=== PATIENT | male | born 1960 | race Hispanic/Latino ===

== ENCOUNTER 2019-02-24 20:30 | Inpatient (IN) | payer MEDICARE ==
[~2019-02-24] VITALS: Ht 154.9 cm; Wt 86.2 kg
[2019-02-24 21:30] LABS: BASOPHILS # (AUTO) 0.1 (0.0-0.1); BASOPHILS % 0.7 % (0.0-1.0); EOSINOPHILS # (AUTO) 0.3 (0.0-0.4); EOSINOPHILS % 3.7 % (0.0-6.0); HEMATOCRIT 31.5 % (38.2-49.6); HEMOGLOBIN 10.7 g/dL (14.0-18.0); MEAN CORPUSCULAR HEMOGLOBIN 28.8 pg (28-32); MEAN CORPUSCULAR VOLUME 84.9 fL (81-99); MONOCYTES # (AUTO) 0.6 (0.2-0.8); MONOCYTES % 7.5 % (4.4-11.3); NEUTROPHILS # (AUTO) 5.3 (2.1-6.9); NEUTROPHILS % 63.6 % (38.7-80.0); PLATELET COUNT 292 x10e3/uL (140-360); RED BLOOD COUNT 3.71 x10e6/uL (4.3-5.7); RED CELL DISTRIBUTION WIDTH 15.9 % (11.7-14.4)
[2019-02-24 21:34] LABS: BILIRUBIN,URINE NEGATIVE (NEGATIVE); CLARITY,URINE CLEAR (CLEAR); COLOR,URINE YELLOW (YELLOW); KETONES,URINE NEGATIVE (NEGATIVE); LEUKOCYTE ESTERASE ,URINE NEGATIVE (NEGATIVE); NITRITE,URINE NEGATIVE (NEGATIVE); PROTEIN,URINE DIPSTICK 2+ (NEGATIVE); URINE UROBILINOGEN 0.2 mg/dL (0.2 - 1)
[2019-02-24 21:48] LABS: ALBUMIN 3.9 g/dL (3.5-5.0); ALBUMIN/GLOBULIN RATIO 1.1 (0.8-2.0); ANION GAP 15.8 mmol/L (8-16); CALCIUM 9.5 mg/dL (8.4-10.2); CREATININE, SERUM 1.89 mg/dL (0.72-1.25); POTASSIUM 3.8 mmol/L (3.5-5.1)
[2019-02-24 21:51] LABS: BACTERIA,URINE FEW /HPF; EPITHELIAL CELLS,URINE MODERATE /LPF; MUCUS,URINE FEW (RARE); RBC,URINE 0-5 /HPF (0-5)
[2019-02-24 21:55] LABS: CREATINE KINASE MB 6.7 ng/mL (0-5.0)
--- NOTE | 2019-02-24 22:06 | Diagnostic Imaging Report ---
EXAMINATION: CHEST SINGLE (PORTABLE) COMPARISON: None INDICATION: Weakness ^sob ^[id number] ^2140 ^Y DISCUSSION: Frontal view of the chest obtained at 2140 hours. HEART AND MEDIASTINUM: The heart is top normal in size, possibly due to portable technique LINES: None. LUNGS: The lungs are well inflated and clear. No pneumonia or pulmonary edema. PLEURA: No pleural effusion or pneumothorax. BONES AND SOFT TISSUES: No focal osseous lesion. The soft tissues are normal. IMPRESSION: No acute cardiopulmonary disease. Signed by: Dr. Alivia Ramon MD on 02/24/2019 10:03 PM
--- NOTE | 2019-02-24 22:46 | Diagnostic Imaging Report ---
History:Weakness Comparison studies:None Technique: Axial images were obtained from the skull base to the vertex. Coronal and sagittal images reconstructed from the axial data. Intravenous contrast: None Dose modulation, iterative reconstruction, and/or weight based adjustment of the mA/kV was utilized to reduce the radiation dose to as low as reasonably achievable. Findings: Scalp/skull: No abnormalities. Extra-axial spaces: No masses. No fluid collections. Brain sulci: Mildly prominent. Ventricles: Mild compensatory dilatation. No hydrocephalus. Parenchyma: Cortical-based hypodensity at the left posterior occipital lobe (cuneus) and left inferior parietal lobule without significant volume loss. Few hypodensities in the supratentorial white matter are small vessel ischemic changes. No masses, hemorrhage, acute or chronic cortical vascular insults. Sellar/suprasellar region: No abnormalities. Craniocervical junction: Patent foramen magnum. No Chiari one malformation. Incidental findings: Atherosclerotic calcifications in the carotid siphons and vertebral arteries . Impression: Age indeterminant infarct at the left posterior occipital lobe (cuneus) and left inferior parietal lobule, favored to be chronic. Chronic findings: 1. Mild generalized volume loss. 2. Mild supratentorial white matter small vessel ischemic changes. Signed by: DR Thomas Aiken M.D. on 02/24/2019 10:43 PM
--- NOTE | 2019-02-24 23:15 | NUR ---
REPORT GIVEN TO AN LOW
--- NOTE | 2019-02-24 23:16 | NUR ---
RECEIVED REPORT FROM AN VINCENT.
--- NOTE | 2019-02-24 23:30 | NUR ---
Patient received from ER via stretcher accompanied by family members. AAO x 3. Admission history and Initial physical assessment performed. Patient had no complaints of pain. Respirations even and non-labored . Telemetry in place. Patient oriented to room , call light and plan of care. Fall precautions implemented. Patient instructed to call for assistance when needed. Call light within reach.
--- OUTSIDE RECORDS SUMMARY | 2019-02-24 23:43 | XMS REPORT ---
Author [facility] Address Unknown Phone Unavailable Care Team Providers Care Physical Science Aide Name Role Phone Philomena FONSECA Unavailable Unavailable Problems This patient has no known problems. Allergies, Adverse Reactions, Alerts This patient has no known allergies or adverse reactions. Medications This patient has no known medications. Results Test Description Test Time Test Comments Text Results Atomic Results Result Comments CT BRAIN WO 2019-02-24 22:24:00 [facility] [address] [address] Patient Name: VANITA HOLDER MR #: [id number] : 1960 Age/Sex: 58/M Req #: [id number] Adm Physician: Ordered by: EVETTE FONSECA MD Report #: [id number] Location: ER Room/Bed: Procedure: [id number] CT/CT BRAIN WO Exam Date: 02/24/19 Exam Time: 2139 REPORT STATUS: Signed History:Weakness Comparison studies:None Technique: Axial images were obtained from the skull base to the vertex. Coronal and sagittal images reconstructed from the axial data. Intravenous contrast: None Dose modulation, iterative reconstruction, and/or weight based adjustment of the mA/kV was utilized to reduce the radiation dose to as low as reasonably achievable. Findings: Scalp/skull: No abnormalities. Extra- axial spaces: No masses. No fluid collections. Brain sulci: Mildly prominent. Ventricles: Mild compensatory dilatation. No hydrocephalus. Parenchyma: Cortical-based hypodensity at the left posterior occipital lobe (cuneus) and left inferior parietal lobule without significant volume loss. Few hypodensities in the supratentorial white matter are small vessel ischemic changes. No masses, hemorrhage, acute or chronic cortical vascular insults. Sellar/suprasellar region: No abnormalities. Craniocervical junction: Patent foramen magnum. No Chiari one malformation. Incidental findings: Atherosclerotic calcifications in the carotid siphons and vertebral arteries . Impression: Age indeterminant infarct at the left posterior occipital lobe (cuneus) and left inferior parietal lobule, favored to be chronic. Chronic findings: 1. Mild generalized volume loss. 2. Mild supratentorial white matter small vessel ischemic changes. Signed by: DR Thomas Aiken M.D. on 02/24/2019 10:43 PM Dictated By: THOMAS GILL MD 42 Transcribed By: JOSEPH on 02/24/192242 COPY TO: EVETTE FONSECA MD CHEST SINGLE (PORTABLE) 2019-02-24 22:03:00 [address] [address] Patient Name: VANITA HOLDER MR #: [id number] : 1960 Age/Sex: 58/M Req #: [id number] Adm Physician: Ordered by: EVETTE FONSECA MD Report #: [id number] Location: ER Room/Bed: Procedure: [id number] DX/CHEST SINGLE (PORTABLE) Exam Date: 02/24/19 Exam Time: 2139 REPORT STATUS: Signed EXAMINATION: CHEST SINGLE (PORTABLE) COMPARISON: None INDICATION: Weakness sob [id number] 2140 Y DISCUSSION: Frontal view of the chest obtained at 2140 hours. HEART AND MEDIASTINUM: The heart is top normal in size, possibly due to portable technique LINES: None. LUNGS: The lungs are well inflated and clear. No pneumonia or pulmonary edema. PLEURA: No pleural effusion or pneumothorax. BONES AND SOFT TISSUES: No focal osseous lesion. The soft tissues are normal. IMPRESSION: No acute cardiopulmonary disease. Signed by: Dr. April Ramon MD on 02/24/2019 10:03 PM Dictated By: APRIL RAMON MD 02 Transcribed By: JOSEPH on 02/24/192202 COPY TO: EVETTE FONSECA MD
[2019-02-24] MEDS ORDERED: SODIUM CHLORIDE FLUSH 10 ML SYR INJ PRN (23:45)
[2019-02-24] MEDS ORDERED: DEXTROSE 50% SYRINGE 50 ML IV PRN (23:45)
[2019-02-24] MEDS ORDERED: ONDANSETRON HCL INJ 2MG/ML 2ML 2 MG/ML VIAL IV PRN (23:45)
[2019-02-25] VITALS (7 sets, daily range): BP systolic 137–172; BP diastolic 63–81
[2019-02-25] MEDS ORDERED: SUCRALFATE1 GM PO (05:10)
[2019-02-25] MEDS ORDERED: LEVOTHYROXINE50 MCG PO (05:10)
[2019-02-25] MEDS ORDERED: GLIPIZIDE5 MG PO (05:10)
[2019-02-25] MEDS ORDERED: CLOPIDOGREL75 MG PO (05:10)
[2019-02-25] MEDS ORDERED: CARVEDILOL12.5 MG PO (05:10)
[2019-02-25] MEDS ORDERED: AMLODIPINE BESY10 MG PO (05:10)
[2019-02-25] MEDS ORDERED: ATORVASTATIN CA20 MG PO (05:10)
[2019-02-25] MEDS ORDERED: FUROSEMIDE40 MG PO (05:10)
[2019-02-25] MEDS ORDERED: LISINOPRIL5 MG PO (05:10)
[2019-02-25] MEDS ORDERED: ISOSORBIDE MONO30 MG PO (05:10)
[2019-02-25] MEDS ORDERED: POTASSIUM CHLO20 ME1 (05:10)
[2019-02-25] MEDS ORDERED: METFORMIN HCL500 MG PO (05:10)
[2019-02-25] MEDS ORDERED: PROTONIX40 MG/ML PO (05:10)
[2019-02-25 05:22] LABS: BASOPHILS # (AUTO) 0.1 (0.0-0.1); BASOPHILS % 0.6 % (0.0-1.0); EOSINOPHILS # (AUTO) 0.3 (0.0-0.4); EOSINOPHILS % 3.9 % (0.0-6.0); HEMATOCRIT 28.2 % (38.2-49.6); HEMOGLOBIN 9.8 g/dL (14.0-18.0); LYMPHOCYTES # (AUTO) 1.9 (1.0-3.2); LYMPHOCYTES % 24.8 % (18.0-39.1); MEAN CORPUSCULAR HEMOGLOBIN 29.2 pg (28-32); MEAN CORPUSCULAR HGB CONC 34.8 g/dL (31-35); MEAN CORPUSCULAR VOLUME 83.9 fL (81-99); MONOCYTES # (AUTO) 0.5 (0.2-0.8); NEUTROPHILS # (AUTO) 4.9 (2.1-6.9); NEUTROPHILS % 63.3 % (38.7-80.0); PLATELET COUNT 247 x10e3/uL (140-360); RED BLOOD COUNT 3.36 x10e6/uL (4.3-5.7); RED CELL DISTRIBUTION WIDTH 15.9 % (11.7-14.4)
[2019-02-25 05:39] LABS: ALBUMIN 3.2 g/dL (3.5-5.0); ALBUMIN/GLOBULIN RATIO 1.1 (0.8-2.0); ANION GAP 12.6 mmol/L (8-16); CALCIUM 8.7 mg/dL (8.4-10.2); CREATININE, SERUM 1.7 mg/dL (0.72-1.25); POTASSIUM 3.6 mmol/L (3.5-5.1)
--- NOTE | 2019-02-25 06:41 | NUR ---
Patient's BP elevated (170/72) with HR of 61. Dr. Steve Thompson notified. New order received.
[2019-02-25 06:47] LABS: CREATINE KINASE MB 3.6 ng/mL (0-5.0)
--- NOTE | 2019-02-25 07:12 | NUR ---
Walking rounds done. Shift report given to oncoming nurse regarding patient's status.
[2019-02-25] MEDS: INSULIN REGULAR, HUMAN 100 UNIT/1 ML 3ML VIAL SQ SCH ×4 (07:30→20:31)
[2019-02-25] MEDS: CARVEDILOL 12.5 MG TAB PO SCH ×2 (07:41→16:33)
[2019-02-25] MEDS: NIFEDIPINE 10 MG CAP PO SCH ×2 (10:56→20:22)
--- NOTE | 2019-02-25 12:13 | Diagnostic Imaging Report ---
History: Weakness Comparison studies: Head CT on 02/24/2019, brain MRI on 02/25/2019 Technique: 2-D abxo-il-seeqbz cervical. 3-D zgia-wk-yrczcn intracranial. Contrast: None Findings: Aortic arch: Obscured by artifacts. Common carotid arteries: Cannot adequately evaluate due to motion artifacts. Carotid bulbs: Evaluation is suboptimal due to motion artifacts. No gross large vessel occlusion. Internal carotid arteries: No flow abnormalities in the cervical segments. Grossly patent anterior and middle cerebral arteries. Vertebral arteries: Origins obscured by artifacts. Evaluation is suboptimal due to motion artifact. No gross large vessel occlusion. Basilar artery: No flow abnormalities. Posterior cerebral arteries: No flow abnormalities in the P1 and P2 segments. Anatomical variants: Acom: Not visualized. Pcom: Prominent on the right due to origin of the right AVIONICS ENGINEER Vertebral arteries: Co-dominant. IMPRESSION: Cervical MRA: 1. Suboptimal study due to motion artifacts. 2. Cannot adequately visualize the origins of the common carotid or the vertebral arteries. 3. No gross major vessel occlusions at the carotid bulbs and in the cervical segments of the internal and vertebral arteries in spite of the artifacts. Intracranial MRA: No gross abnormalities in spite of motion artifacts. Signed by: Dr. Clive Perez M.D. on 02/25/2019 12:10 PM
--- NOTE | 2019-02-25 12:13 | Diagnostic Imaging Report ---
History: Weakness Comparison studies: Head CT on 02/24/2019, brain MRI on 02/25/2019 Technique: 2-D iodc-kq-adrtfd cervical. 3-D dqoi-ji-wnjknu intracranial. Contrast: None Findings: Aortic arch: Obscured by artifacts. Common carotid arteries: Cannot adequately evaluate due to motion artifacts. Carotid bulbs: Evaluation is suboptimal due to motion artifacts. No gross large vessel occlusion. Internal carotid arteries: No flow abnormalities in the cervical segments. Grossly patent anterior and middle cerebral arteries. Vertebral arteries: Origins obscured by artifacts. Evaluation is suboptimal due to motion artifact. No gross large vessel occlusion. Basilar artery: No flow abnormalities. Posterior cerebral arteries: No flow abnormalities in the P1 and P2 segments. Anatomical variants: Acom: Not visualized. Pcom: Prominent on the right due to origin of the right RADIO OPERATOR GROUND Vertebral arteries: Co-dominant. IMPRESSION: Cervical MRA: 1. Suboptimal study due to motion artifacts. 2. Cannot adequately visualize the origins of the common carotid or the vertebral arteries. 3. No gross major vessel occlusions at the carotid bulbs and in the cervical segments of the internal and vertebral arteries in spite of the artifacts. Intracranial MRA: No gross abnormalities in spite of motion artifacts. Signed by: Dr. Clive Perez M.D. on 02/25/2019 12:10 PM
--- NOTE | 2019-02-25 12:14 | Diagnostic Imaging Report ---
History: Weakness Comparison studies: Head CT on 02/24/2019 Technique: Sagittal T2; axial DWI, FLAIR, MPGR, T1, Coronal FLAIR. Intravenous contrast: None Findings: Scalp: Normal in signal . No masses . Bone marrow: Normal in signal intensity. Extra-axial: No masses or fluid collections. Brain sulci: Moderately prominent. Ventricles: Moderate compensatory dilatation. No hydrocephalus. Parenchyma: Subcortical encephalomalacic changes in the left medial occipital white matter (above and below the calcarine fissure), the result of an old nonspecific insult, are associated with regional volume loss. Additional focal subacute or chronic vascular insults are seen in the left middle and inferior temporal gyri, the angular region of the left parietal lobe and in the inferomedial parietal lobe (pre-cuneus). Ill defined T2 FLAIR hyperintense foci in the konrad are nonspecific small vessel ischemic changes. A single punctate chronic microhemorrhage (hypointense on the gradient echo sequence) is centered in the inferomedial right occipital lobe (series 6, image 9) . No masses, hemorrhage, acute or additional chronic cortical ischemic insults. Suprasellar region: No abnormalities. Craniocervical junction: No abnormalities. Patent foramen magnum. No Chiari one malformation. Vessels: Normal flow-voids in the arteries and sinuses. IMPRESSION: 1. No acute abnormalities. 2. Specifically, no acute vascular insults. Chronic findings: 1. Moderate generalized volume loss 2. Cortical insult in the left medial occipital lobe unchanged compared to the previous head CT. 3. Additional subacute/early chronic focal, smaller cortical insults (left temporal and left parietal). 4. Single punctate chronic microhemorrhage in the right inferomedial occipital lobe. Signed by: Dr. Clive Perez M.D. on 02/25/2019 12:10 PM
--- NOTE | 2019-02-25 13:42 | NUR ---
H&P cc: weakness HPI: 58yoF, PCP , developed weakness, found to have subacute stroke. No acute findings; no cp/sob. Pt had diarrhea and vomiting for 2 days, but now better. Came to hospital because had difficulty moving, no focal weakness. [place] tired and weak. PMH: Hypothyroidism, DM2, HTN, HLD, GERD, fluid retention on lasix, stroke, [place] PShx: unknown Allergies; see emr Fh/SH;single; no etoh/cigs/illiicts MEds see MAR ROS: no cp/sob/f/c/s/N/V/D/skin rash/dizziness/leg pain v/s; REVD PE tired appearing anicteric ns1s2 mod bs soft nt nd no e/t a&ox3; rojas skin dry n. affect labs/meds revd A/P: 58yoM SUbacute stroke Chronic strokes Acute rhabdomyolysis AJ Severe obesity BMI 35.9 with DM HLD HTN GERD Hypothyroidism DM2 Physical deconditioning PLAN lipid panel/hba1c/ASA/plavix/statin/PT consult; echo home meds lovenox/ppi dispo: medical tx Anatoly Thompson MD, PhD.
[2019-02-25 16:16] LABS: CREATINE KINASE MB 3.2 ng/mL (0-5.0)
[2019-02-25 16:29] LABS: CHOL/HDL RATIO 3.9 (3.9-4.7)
[2019-02-25] MEDS: ENOXAPARIN SOD INJ 40 MG/0.4 ML SYR SC SCH (16:33)
[2019-02-25] MEDS: SUCRALFATE 1 GM TAB PO SCH ×2 (16:33→20:22)
[2019-02-25] MEDS: SODIUM CHLORIDE 0.9% 1000ML 1,000 ML IV SCH (17:51)
--- NOTE | 2019-02-25 18:45 | NUR ---
Received bedside report from day shift RN. The patient is sitting on the chair next to the bed. Side rails up x2, call light within reach, bed height low and wheels lock. The patient is not in distress.
[2019-02-25] MEDS: ATORVASTATIN 40 MG TAB PO SCH (20:22)
[2019-02-26] VITALS (8 sets, daily range): BP systolic 123–161; BP diastolic 56–83
[2019-02-26] MEDS: LEVOTHYROXINE SODIUM 50 MCG TAB PO SCH (05:18)
[2019-02-26] MEDS: CARVEDILOL 12.5 MG TAB PO SCH ×2 (06:17→16:33)
--- NOTE | 2019-02-26 07:16 | NUR ---
PT ALERT SITTING ON SIDE OF BED RESP EVEN AND UNLABORED AT THIS TIME NO DISTRESS NOTED, PT HAS NO C/O PAIN WHEN ASKED, CALL LIGHT IN REACH.
[2019-02-26] MEDS: INSULIN REGULAR, HUMAN 100 UNIT/1 ML 3ML VIAL SQ SCH ×4 (07:30→21:29)
[2019-02-26] MEDS ORDERED: AMLODIPINE BESYLATE 10 MG TAB PO SCH (09:00)
[2019-02-26] MEDS: POTASSIUM CHLORIDE 20 MEQ TAB CR PO SCH (09:13)
[2019-02-26] MEDS: CLOPIDOGREL BISULFATE 75 MG TAB PO SCH (09:13)
[2019-02-26] MEDS: ASPIRIN 81 MG CHEW TAB PO SCH (09:13)
[2019-02-26] MEDS: LISINOPRIL 2.5 MG TAB PO SCH (09:13)
[2019-02-26] MEDS: SUCRALFATE 1 GM TAB PO SCH ×4 (09:13→21:30)
[2019-02-26] MEDS: PANTOPRAZOLE SOD 40 MG TABEC PO SCH (09:14)
[2019-02-26] MEDS: ISOSORBIDE MONONITRATE 30 MG TAB CR PO SCH (09:14)
[2019-02-26] MEDS: NIFEDIPINE 10 MG CAP PO SCH ×2 (09:15→21:30)
[2019-02-26] MEDS ORDERED: ONDANSETRON HCL 4 MG ORAL DISINTEGRATING TAB PO PRN (11:15)
[2019-02-26 11:49] LABS: BASOPHILS # (AUTO) 0.1 (0.0-0.1); BASOPHILS % 0.7 % (0.0-1.0); EOSINOPHILS # (AUTO) 0.2 (0.0-0.4); EOSINOPHILS % 3.4 % (0.0-6.0); HEMATOCRIT 26.7 % (38.2-49.6); HEMOGLOBIN 9.1 g/dL (14.0-18.0); LYMPHOCYTES # (AUTO) 1.4 (1.0-3.2); LYMPHOCYTES % 21.1 % (18.0-39.1); MEAN CORPUSCULAR HEMOGLOBIN 28.9 pg (28-32); MEAN CORPUSCULAR HGB CONC 34.1 g/dL (31-35); MEAN CORPUSCULAR VOLUME 84.8 fL (81-99); MONOCYTES # (AUTO) 0.6 (0.2-0.8); MONOCYTES % 8.2 % (4.4-11.3); NEUTROPHILS # (AUTO) 4.4 (2.1-6.9); NEUTROPHILS % 66.2 % (38.7-80.0); PLATELET COUNT 220 x10e3/uL (140-360); RED BLOOD COUNT 3.15 x10e6/uL (4.3-5.7); RED CELL DISTRIBUTION WIDTH 15.4 % (11.7-14.4)
[2019-02-26 12:10] LABS: ANION GAP 12.4 mmol/L (8-16); CALCIUM 8.2 mg/dL (8.4-10.2); CREATININE, SERUM 1.87 mg/dL (0.72-1.25); POTASSIUM 4.4 mmol/L (3.5-5.1)
[2019-02-26] MEDS: SODIUM CHLORIDE 0.9% 1000ML 1,000 ML IV SCH (12:34)
--- NOTE | 2019-02-26 14:30 | NUR ---
PT AMBULATING IN [place] AT THIS TIME.
[2019-02-26] MEDS: ENOXAPARIN SOD INJ 40 MG/0.4 ML SYR SC SCH (16:33)
--- NOTE | 2019-02-26 18:45 | NUR ---
Received bedside report from day shift RN. The patient is sitting on the chair next to the bed. Side rails up x2, call light within reach, bed height low and wheels lock. The patient is not in distress. Daughter at bedside. Daughter asked about her father's dehydration status. Educated patient/daughter on hydration as well as fluid overload. The patient should take daily weight first thing in the morning before breakfast and any fluid and monitor/record fluid intake throughout the day to be consistent with weight. Verbalized understanding.
--- NOTE | 2019-02-26 19:30 | NUR ---
REPORT GIVEN TO ON COMING NURSE FOR CONTINUED CARE. PT STABLE.
[2019-02-26] MEDS: ATORVASTATIN 40 MG TAB PO SCH (21:30)
[2019-02-27] VITALS (8 sets, daily range): BP systolic 111–155; BP diastolic 64–81
[2019-02-27] MEDS: LEVOTHYROXINE SODIUM 50 MCG TAB PO SCH (05:01)
[2019-02-27] MEDS: CARVEDILOL 12.5 MG TAB PO SCH ×2 (05:50→17:45)
--- NOTE | 2019-02-27 07:36 | NUR ---
IM- progress Note O/N no events ROS: no cp/sob/f/c/s/N/V/D/skin rash/dizziness/leg pain v/s; REVD PE tired appearing anicteric ns1s2 mod bs soft nt nd no e/t a&ox3; rojas skin dry n. affect labs/meds revd A/P: 58yoM SUbacute stroke Chronic strokes Acute rhabdomyolysis AJ Severe obesity BMI 35.9 with DM HLD HTN GERD Hypothyroidism DM2 Physical deconditioning PLAN lipid panel/hba1c/ASA/plavix/statin/PT consult; echo home meds lovenox/ppi dispo: medical tx 02/26/19 no events; feeling a little better; Anatoly Thompson MD, PhD.
--- NOTE | 2019-02-27 07:36 | NUR ---
IM- progress Note O/N no events ROS: no cp/sob/f/c/s/N/V/D/skin rash/dizziness/leg pain v/s; REVD PE tired appearing anicteric ns1s2 mod bs soft nt nd no e/t a&ox3; rojas skin dry n. affect labs/meds revd A/P: 58yoM SUbacute stroke Chronic strokes Acute rhabdomyolysis AJ Severe obesity BMI 35.9 with DM HLD HTN GERD Hypothyroidism DM2 Physical deconditioning PLAN lipid panel/hba1c/ASA/plavix/statin/PT consult; echo home meds lovenox/ppi dispo: medical tx 02/26/19 no events; feeling a little better; 02/27 check renal U/S; rehydrate; d/c planning; Renal U/s normal; give more fluids; check BMP in am. Anatoly Thompson MD, PhD.
[2019-02-27] MEDS ORDERED: NIFEDIPINE ER30 M1 PO (07:39)
--- NOTE | 2019-02-27 07:54 | NUR ---
called MD for blood sugar results of 423. Per MD give sliding scale 20 units and new prescriptions of glucotrol and glucophage.
[2019-02-27] MEDS: LISINOPRIL 2.5 MG TAB PO SCH (08:30)
[2019-02-27] MEDS: NIFEDIPINE 10 MG CAP PO SCH ×2 (08:30→20:32)
[2019-02-27] MEDS: GLIPIZIDE 5 MG TAB PO SCH (08:30)
[2019-02-27] MEDS: CLOPIDOGREL BISULFATE 75 MG TAB PO SCH (08:30)
[2019-02-27] MEDS: ISOSORBIDE MONONITRATE 30 MG TAB CR PO SCH (08:30)
[2019-02-27] MEDS: METFORMIN HCL 500 MG TAB PO SCH ×4 (08:30→20:32)
[2019-02-27] MEDS: PANTOPRAZOLE SOD 40 MG TABEC PO SCH (08:30)
[2019-02-27] MEDS: ASPIRIN 81 MG CHEW TAB PO SCH (08:30)
[2019-02-27] MEDS: INSULIN REGULAR, HUMAN 100 UNIT/1 ML 3ML VIAL SQ SCH (08:30)
[2019-02-27] MEDS: POTASSIUM CHLORIDE 20 MEQ TAB CR PO SCH (08:30)
[2019-02-27] MEDS: SUCRALFATE 1 GM TAB PO SCH ×4 (08:30→20:32)
--- NOTE | 2019-02-27 11:09 | Diagnostic Imaging Report ---
EXAM: Renal Ultrasound INDICATION: ^adam vs ckd ^[id number] ^0905 COMPARISON: None TECHNIQUE: Transverse and longitudinal images of the kidneys and bladder were obtained. FINDINGS: Right Kidney: Length: 11.1 cm Appearance: Normal echogenicity. Collecting system: No hydronephrosis Stones: None Cyst/Mass: None Left Kidney: Length: 11.1 cm Appearance: Normal echogenicity. Collecting system: No hydronephrosis Stones: None Cyst/Mass: None Bladder: No wall thickening or mass. Left ureteral jet seen. Right ureteral jet not seen. Prostate: Within normal limits, estimated volume 12.3 cc IMPRESSION: No hydronephrosis or renal calculi. Signed by: Bella Olivera MD on 02/27/2019 11:06 AM
[2019-02-27] MEDS: SODIUM CHLORIDE 0.9% 1000ML 1,000 ML IV SCH (13:05)
[2019-02-27] MEDS: ACETAMINOPHEN 325 MG TAB PO PRN (17:45)
[2019-02-27] MEDS: ENOXAPARIN SOD INJ 40 MG/0.4 ML SYR SC SCH (17:45)
[2019-02-27] MEDS: INSULIN LISPRO 100 UNIT/1 ML 3ML VIAL SQ SCH (17:45)
[2019-02-27] MEDS: ATORVASTATIN 40 MG TAB PO SCH (20:32)
[2019-02-27] MEDS: INSULIN GLARGINE 100 UNITS/ML VIAL SQ SCH (20:33)
[2019-02-28] VITALS (8 sets, daily range): BP systolic 118–153; BP diastolic 64–76
[2019-02-28] MEDS: SODIUM CHLORIDE 0.9% 1000ML 1,000 ML IV SCH ×3 (00:52→19:45)
[2019-02-28] MEDS: LEVOTHYROXINE SODIUM 50 MCG TAB PO SCH (05:10)
[2019-02-28 05:46] LABS: ANION GAP 12.4 mmol/L (8-16); CALCIUM 7.8 mg/dL (8.4-10.2); CREATININE, SERUM 1.88 mg/dL (0.72-1.25); POTASSIUM 4.4 mmol/L (3.5-5.1)
[2019-02-28] MEDS: CARVEDILOL 12.5 MG TAB PO SCH ×2 (06:08→18:39)
--- NOTE | 2019-02-28 06:35 | NUR ---
IM- progress Note O/N no events ROS: no cp/sob/f/c/s/N/V/D/skin rash/dizziness/leg pain v/s; REVD PE tired appearing anicteric ns1s2 mod bs soft nt nd no e/t a&ox3; rojas skin dry n. affect labs/meds revd A/P: 58yoM SUbacute stroke Chronic strokes Acute rhabdomyolysis AJ Severe obesity BMI 35.9 with DM HLD HTN GERD Hypothyroidism DM2 Physical deconditioning PLAN lipid panel/hba1c/ASA/plavix/statin/PT consult; echo home meds lovenox/ppi dispo: medical tx 02/26/19 no events; feeling a little better; 02/27 check renal U/S; rehydrate; d/c planning; Renal U/s normal; give more fluids; check BMP in am. 02/28 likely has CKD3. Anatoly Thompson MD, PhD.
[2019-02-28] MEDS: SUCRALFATE 1 GM TAB PO SCH ×4 (07:30→20:20)
[2019-02-28] MEDS: INSULIN LISPRO 100 UNIT/1 ML 3ML VIAL SQ SCH ×3 (07:30→16:30)
[2019-02-28] MEDS: PANTOPRAZOLE SOD 40 MG TABEC PO SCH (07:30)
[2019-02-28] MEDS: ASPIRIN 81 MG CHEW TAB PO SCH (07:30)
--- NOTE | 2019-02-28 07:30 | NUR ---
REC'D PATIENT SLEEPING WITH CHEST RISING UP AN DOWN EFFORTLESSLY AND UNLABORED. IV TO LT AC CLEAR AND PATENT. SIDE RAILS UPX2, BED IN LOWEST POSITION, AND CALL PAUL WITHIN REACH.
[2019-02-28] MEDS: CLOPIDOGREL BISULFATE 75 MG TAB PO SCH (09:00)
[2019-02-28] MEDS: METFORMIN HCL 500 MG TAB PO SCH ×4 (09:00→20:20)
[2019-02-28] MEDS: GLIPIZIDE 5 MG TAB PO SCH (09:00)
[2019-02-28] MEDS: POTASSIUM CHLORIDE 20 MEQ TAB CR PO SCH (09:00)
[2019-02-28] MEDS: NIFEDIPINE 10 MG CAP PO SCH ×2 (09:00→20:20)
[2019-02-28] MEDS: ISOSORBIDE MONONITRATE 30 MG TAB CR PO SCH (09:00)
[2019-02-28] MEDS: LISINOPRIL 2.5 MG TAB PO SCH (09:00)
[2019-02-28] MEDS ORDERED: SODIUM CHLORIDE 0.9% 1000ML 1,000 ML ONE ×2 (10:28→15:48)
--- NOTE | 2019-02-28 15:40 | NUR ---
Visit made by the Spiritual Care Department Pastoral Visitor, Joanna Flowers. PV provided pastoral presence, hospitality, and supportive listening. Pastoral Visitor informed pt/family of the scope of [employer] and availability. JUWAN LEAHY [employer] Set Up Worker Spiritual Care Department O: [phone] Pager: [phone] ([phone] number calling from)
--- NOTE | 2019-02-28 15:59 | NUR ---
DISCUSSED IN BARRIER ROUNDS, PT ON IV FLUIDS ON PO PAIN MEDS, POSSIBLE DISCHARGE TODAY.
[2019-02-28] MEDS: ENOXAPARIN SOD INJ 40 MG/0.4 ML SYR SC SCH (18:40)
--- NOTE | 2019-02-28 18:50 | NUR ---
PATIENT IS IN BED, NO S/S OF DISTRESS. SIDE RAILS UP X2, BED IN LOWEST POSITION, AND CALL LIGHT WITHIN REACH.
--- NOTE | 2019-02-28 19:47 | NUR ---
PATIENT STATED THAT HE WAS SHORT OF BREATH. O2 SAT WAS CHECKED AT 88%, OXYGEN AT 3L WAS GIVEN PER O2 PROTOCOL. PATIENT NOW RESTING IN BED, WILL CONTINUE TO MONITOR.
[2019-02-28] MEDS: ACETAMINOPHEN 325 MG TAB PO PRN (20:20)
[2019-02-28] MEDS: ATORVASTATIN 40 MG TAB PO SCH (20:20)
[2019-02-28] MEDS: INSULIN GLARGINE 100 UNITS/ML VIAL SQ SCH (20:20)
[2019-02-28] MEDS ORDERED: FUROSEMIDE INJ 10 MG/ML 4 ML VIAL IV ONE (22:15)
--- NOTE | 2019-02-28 22:39 | NUR ---
NEW ORDERS NOTED AND CARRIED OUT, MARTIN CATHETER 18FR PLACED, RETURN OF 400CC YELLOW COLORED URINE. PATIENT TOLERATED WELL. REMAIN ON NONREBREATHER 02 SATS AT 100%, WILL CONTINUE TO MONITOR.
--- NOTE | 2019-02-28 22:59 | NUR ---
PATIENT'S O2 SAT DROPPED TO 84%, OXYGEN INCREASED TO 10L. RESPIRATORY CALLED FOR O2 TREATMENT, AND FACE MASKED PLACED ON PATIENT. CALLED DR. ADAM FOR PATIENT'S PROGRESS, PATIENT WAS ORDERED LASIX AND FLUID'S DISCONTINUED. MARTIN PLACED BY CHARGE NURSE AND IS PATENT AND FLOWING. O2 SAT IS NOW AT 100% WILL CONTINUE TO MONITOR.
[2019-03-01] VITALS (8 sets, daily range): BP systolic 117–179; BP diastolic 57–89
--- NOTE | 2019-03-01 01:03 | NUR ---
PATIENT O2 SAT AT 96%. PATIENT IS RESTING WITH EYES CLOSED, NO RESPIRATORY DISTRESS NOTED. NASAL CANNULA INTACT, O2 SENSOR IS ON. BED IS LOCKED AND LOW, CALL LIGHT WITHIN EASY REACH WILL CONTINUE TO MONITOR.
--- NOTE | 2019-03-01 02:51 | NUR ---
PATIENT O2 SAT AT 98%. PATIENT IS RESTING WITH EYES CLOSED, NO RESPIRATORY DISTRESS NOTED. NASAL CANNULA INTACT, O2 SENSOR IS ON. BED IS LOCKED AND LOW, CALL LIGHT WITHIN EASY REACH WILL CONTINUE TO MONITOR.
--- NOTE | 2019-03-01 03:24 | NUR ---
PATIENT'S O2 SAT IS STILL AT 98% AND HAD A URINE OUTPUT OF 2500 CC'S. PATIENT IS RESTING COMFORTABLY, CALL LIGHT WITHIN REACH WILL CONTINUE TO MONITOR.
[2019-03-01 05:37] LABS: BASOPHILS % 0.4 % (0.0-1.0); EOSINOPHILS # (AUTO) 0.1 (0.0-0.4); HEMATOCRIT 28.1 % (38.2-49.6); HEMOGLOBIN 9.5 g/dL (14.0-18.0); LYMPHOCYTES # (AUTO) 0.9 (1.0-3.2); LYMPHOCYTES % 8.3 % (18.0-39.1); MEAN CORPUSCULAR HEMOGLOBIN 28.7 pg (28-32); MEAN CORPUSCULAR HGB CONC 33.8 g/dL (31-35); MEAN CORPUSCULAR VOLUME 84.9 fL (81-99); MONOCYTES # (AUTO) 0.8 (0.2-0.8); MONOCYTES % 6.8 % (4.4-11.3); NEUTROPHILS # (AUTO) 9.4 (2.1-6.9); NEUTROPHILS % 82.8 % (38.7-80.0); PLATELET COUNT 246 x10e3/uL (140-360); RED BLOOD COUNT 3.31 x10e6/uL (4.3-5.7); RED CELL DISTRIBUTION WIDTH 15.8 % (11.7-14.4)
[2019-03-01 05:44] LABS: ANION GAP 14.5 mmol/L (8-16); CALCIUM 8.1 mg/dL (8.4-10.2); CREATININE, SERUM 1.78 mg/dL (0.72-1.25); POTASSIUM 4.5 mmol/L (3.5-5.1)
[2019-03-01] MEDS: SODIUM CHLORIDE 0.9% 1000ML 1,000 ML IV SCH ×2 (05:45→15:45)
[2019-03-01] MEDS: CARVEDILOL 12.5 MG TAB PO SCH ×2 (06:13→17:56)
[2019-03-01] MEDS: LEVOTHYROXINE SODIUM 50 MCG TAB PO SCH (06:13)
[2019-03-01] MEDS: SUCRALFATE 1 GM TAB PO SCH ×4 (08:51→21:22)
[2019-03-01] MEDS: INSULIN LISPRO 100 UNIT/1 ML 3ML VIAL SQ SCH ×3 (08:51→16:43)
[2019-03-01] MEDS: ISOSORBIDE MONONITRATE 30 MG TAB CR PO SCH (08:52)
[2019-03-01] MEDS: GLIPIZIDE 5 MG TAB PO SCH (08:52)
[2019-03-01] MEDS: ASPIRIN 81 MG CHEW TAB PO SCH (08:52)
[2019-03-01] MEDS: METFORMIN HCL 500 MG TAB PO SCH ×4 (08:52→21:22)
[2019-03-01] MEDS: PANTOPRAZOLE SOD 40 MG TABEC PO SCH (08:52)
[2019-03-01] MEDS: CLOPIDOGREL BISULFATE 75 MG TAB PO SCH (08:53)
[2019-03-01] MEDS: LISINOPRIL 2.5 MG TAB PO SCH (08:53)
[2019-03-01] MEDS: POTASSIUM CHLORIDE 20 MEQ TAB CR PO SCH (08:53)
[2019-03-01] MEDS: NIFEDIPINE 10 MG CAP PO SCH ×2 (08:54→21:00)
[2019-03-01] MEDS ORDERED: FUROSEMIDE INJ 10 MG/ML 2 ML VIAL IV ONE (13:44)
--- NOTE | 2019-03-01 13:49 | NUR ---
D/C summary Principal Dx: SUbacute stroke Chronic strokes Acute rhabdomyolysis Likely CKD3 Severe obesity BMI 35.9 with DM Physical deconditioning Secondary Dx: HLD HTN GERD Hypothyroidism DM2 PLAN lipid panel/hba1c/ASA/plavix/statin/PT consult; echo home meds lovenox/ppi dispo: medical tx 02/26/19 no events; feeling a little better; 02/27 check renal U/S; rehydrate; d/c planning; Renal U/s normal; give more fluids; check BMP in am. 02/28 likely has CKD3. 03/01 fluid overloaded last night; needed aggressive diuresis and stoppage of fluids; Now, doingbetter; give stat cxr and 20 IV lasix d/c home f/u pcp 1 week stable d/c>35mins Anatoly Thompson MD, PhD.
--- NOTE | 2019-03-01 15:20 | Diagnostic Imaging Report ---
EXAMINATION: CHEST 2 VIEWS INDICATION: Shortness of breath COMPARISON: None FINDINGS: TUBES and LINES: EKG leads overlie the chest. LUNGS: The lung volumes are low. No focal consolidation or pulmonary edema. PLEURA: Likely trace right pleural effusion. No pneumothorax. HEART AND MEDIASTINUM: The cardiomediastinal silhouette is enlarged. BONES AND SOFT TISSUES: No acute fracture or dislocation. UPPER ABDOMEN: No free air under the diaphragm. IMPRESSION: Low lung volumes with no focal pneumonia or pulmonary edema. Mild cardiomegaly. Likely trace right pleural effusion. Signed by: Bella Olivera MD on 03/01/2019 3:17 PM
--- NOTE | 2019-03-01 15:27 | NUR ---
IMM letter delivered and explained to pt. He verbalized understanding. Signed copy placed in chart. Copy to pt's bedside.
[2019-03-01] MEDS: ENOXAPARIN SOD INJ 40 MG/0.4 ML SYR SC SCH (16:43)
--- NOTE | 2019-03-01 19:32 | NUR ---
Patient received sitting by edge of bed. AAO x 3. Family at bedside. Patient complained of dizziness and also of pain in the penile region where the rosado catheter was inserted. Dark red dried blood noted around penis. Patient was assisted to his bed and made comfortable. Fall precautions implemented. Call light within reach.
--- NOTE | 2019-03-01 20:21 | NUR ---
Dr. Steve shaffer. Orders received to discontinue indwelling rosado catheter. Patient complained of dizziness and his inability to walk down the song (The plan was to check his oxygen saturation while ambulating down the song). Order received to "Hold" discharge until tomorrow.
--- NOTE | 2019-03-01 20:52 | NUR ---
Sandy catheter removed from patient. Patient tolerated well.
[2019-03-01] MEDS: INSULIN GLARGINE 100 UNITS/ML VIAL SQ SCH (21:00)
[2019-03-01] MEDS: ATORVASTATIN 40 MG TAB PO SCH (21:22)
--- NOTE | 2019-03-01 23:12 | NUR ---
Patient voided 50 cc of blood tinged urine s/p rosado catheter removal.
[2019-03-02] VITALS (8 sets, daily range): BP systolic 114–151; BP diastolic 56–71
--- NOTE | 2019-03-02 01:15 | NUR ---
Patient voided 300 cc of blood tinged urine. Will continue to monitor.
[2019-03-02] MEDS: SODIUM CHLORIDE 0.9% 1000ML 1,000 ML IV SCH (01:45)
[2019-03-02] MEDS: CARVEDILOL 12.5 MG TAB PO SCH ×2 (06:45→17:55)
[2019-03-02] MEDS: LEVOTHYROXINE SODIUM 50 MCG TAB PO SCH (06:45)
--- NOTE | 2019-03-02 06:54 | NUR ---
IM- progress Note O/N no events ROS: no cp/sob/f/c/s/N/V/D/skin rash/dizziness/leg pain v/s; REVD PE tired appearing anicteric ns1s2 mod bs soft nt nd no e/t a&ox3; rojas skin dry n. affect labs/meds revd A/P: 58yoM SUbacute stroke Chronic strokes Acute rhabdomyolysis AJ Severe obesity BMI 35.9 with DM HLD HTN GERD Hypothyroidism DM2 Physical deconditioning PLAN lipid panel/hba1c/ASA/plavix/statin/PT consult; echo home meds lovenox/ppi dispo: medical tx 02/26/19 no events; feeling a little better; 02/27 check renal U/S; rehydrate; d/c planning; Renal U/s normal; give more fluids; check BMP in am. 02/28 likely has CKD3. 03/01 fluid overloaded last night; needed aggressive diuresis and stoppage of fluids; Now, doingbetter; give stat cxr and 20 IV lasix 03/02 deconditioned; cont PT; set up PT at home; d/c planning; Anatoly Thompson MD, PhD.
--- NOTE | 2019-03-02 07:00 | NUR ---
Shift report given to oncoming nurse.
--- NOTE | 2019-03-02 07:19 | NUR ---
Received patient at this time. Patient is A&O sitting up in the chair. Patient complains of blood in the urine. Sample in the restroom. Observed hematuria with clots. Dr. hma here to see the patient. New orders received to insert Sandy catheter and flush q4 hours until clear. Will implement orders. Call mccormack within reach of patient.
[2019-03-02] MEDS: CLOPIDOGREL BISULFATE 75 MG TAB PO SCH (09:23)
[2019-03-02] MEDS: PANTOPRAZOLE SOD 40 MG TABEC PO SCH (09:23)
[2019-03-02] MEDS: METFORMIN HCL 500 MG TAB PO SCH ×5 (09:23→21:28)
[2019-03-02] MEDS: ASPIRIN 81 MG CHEW TAB PO SCH (09:23)
[2019-03-02] MEDS: LISINOPRIL 2.5 MG TAB PO SCH (09:23)
[2019-03-02] MEDS: SUCRALFATE 1 GM TAB PO SCH ×4 (09:23→21:28)
[2019-03-02] MEDS: NIFEDIPINE 10 MG CAP PO SCH (09:23)
[2019-03-02] MEDS: INSULIN LISPRO 100 UNIT/1 ML 3ML VIAL SQ SCH ×3 (09:23→16:30)
[2019-03-02] MEDS: GLIPIZIDE 5 MG TAB PO SCH (09:23)
[2019-03-02] MEDS: ISOSORBIDE MONONITRATE 30 MG TAB CR PO SCH (09:23)
[2019-03-02] MEDS: POTASSIUM CHLORIDE 20 MEQ TAB CR PO SCH (09:23)
--- NOTE | 2019-03-02 09:33 | NUR ---
Patient refusing to let me insert new Sandy catheter. I called to let Dr. Thompson know. Left him a message. Awaiting new orders.
--- NOTE | 2019-03-02 10:54 | NUR ---
CM SPOKE WITH PATIENT AT BEDSIDE REGARDING HOME HEALTH ORDER. PATIENT AWARE AND WANTS HOME HEALTH SERVICES. PATIENT EDUCATED ON HOME HEALTH SERVICES AND GIVEN CHOICES. PATIENT SIGNED CHOICE FOR [facility]. CLINICAL SENT TO [facility]. [facility] (P) [phone] (F) [phone]
--- NOTE | 2019-03-02 11:00 | NUR ---
DISCHARGE DISPOSITION PATIENT DISCHARGING HOME WITH HOME HEALTH SERVICES [facility], PT/ OT EVAL: [facility] (P) [phone] (F) [phone]
--- NOTE | 2019-03-02 12:15 | NUR ---
Inserted 18 Fr Sandy catheter at this time. Patient tolerated well. Immediate drainage of one blood clot followed by maroon colored urine. 200mL recorded output. Patient has call mccormack within reach.
[2019-03-02] MEDS: ENOXAPARIN SOD INJ 40 MG/0.4 ML SYR SC SCH (17:09)
--- NOTE | 2019-03-02 19:00 | NUR ---
Walking rounds performed. Inspected Sandy catheter. Urine is light paul with pink sediment. No clots noted. Patient is in no distress. Family at the bedside. Updated them on plan of care and answered questions accordingly.
--- NOTE | 2019-03-02 19:20 | NUR ---
Patient received lying in bed. AAO x 3. Family members at bedside. Patient had no complaints of pain. Respirations even and non-labored. Sandy catheter draining blood -tinged urine with a lot of sediments. Patient informed of upcoming procedure---CT /Abd/Pel WO. Fall precautions implemented. Patient instructed to call for assistance when needed. Call light within reach.
--- NOTE | 2019-03-02 20:58 | Diagnostic Imaging Report ---
EXAM: CT Abdomen and Pelvis WITHOUT contrast INDICATION: Hematuria. COMPARISON: None. TECHNIQUE: Abdomen and pelvis were scanned utilizing a multidetector helical scanner from the lung base to the pubic symphysis without administration of IV contrast. Absence of intravenous contrast decreases sensitivity for detection of focal lesions and vascular pathology. Coronal and sagittal reformations were obtained. Routine protocol was performed. IV CONTRAST: None. ORAL CONTRAST: Water RADIATION DOSE: Total DLP: 589.92 mGy*cm Estimated effective dose: (DLP x 0.015 x size factor) mSv COMPLICATIONS: None FINDINGS: LINES and TUBES: None. LOWER THORAX: Bilateral small pleural effusions. Bibasilar subsegmental compressive atelectasis. Coronary artery calcifications. HEPATOBILIARY: No focal hepatic lesions. No biliary ductal dilation. GALLBLADDER: There are cholecystectomy clips. SPLEEN: No splenomegaly. PANCREAS: No focal masses or ductal dilatation. ADRENALS: Subcentimeter right adrenal adenoma. KIDNEYS/URETERS: No hydronephrosis. 5 mm nonobstructing calculus in the interpolar region of the left kidney on images 61 series 3. GI TRACT: No abnormal distention, wall thickening, or evidence of bowel obstruction. Hyperdense material within the cecum may present ingested material. Appendix is mildly prominent, however, no evidence of appendicitis. PELVIC ORGANS/BLADDER: Urinary bladder is decompressed by a full catheter. It contains a small volume of fluid. There is mild to moderate thickening of the anterior wall of the urinary bladder which may be part related to decompression. LYMPH NODES: No lymphadenopathy. VESSELS: There is mild atherosclerotic disease in the aorta and major arterial branches. PERITONEUM / RETROPERITONEUM: No free air or fluid. BONES: Unremarkable. SOFT TISSUES: Unremarkable. IMPRESSION: 1. 5.5 mm nonobstructing calculus in the left kidney. No hydronephrosis. 2. Mild thickening of the anterior wall of the urinary bladder may be in part related to underdistention presence of Sandy catheter. 3. Bilateral small pleural effusions and bibasilar subsegmental compressive atelectasis. Signed by: Dr. Kathleen Burton M.D. on 03/02/2019 8:54 PM
[2019-03-02] MEDS: INSULIN GLARGINE 100 UNITS/ML VIAL SQ SCH (21:00)
[2019-03-02] MEDS: NIFEDIPINE CR 30 MG TAB PO SCH (21:28)
[2019-03-02] MEDS: ATORVASTATIN 40 MG TAB PO SCH (21:28)
--- NOTE | 2019-03-02 22:30 | NUR ---
Sandy catheter irrigated; 2 large blood clots noted. Patient tolerated well.
[2019-03-03] VITALS: BP 159/71
[2019-03-03 04:00] VITALS: BP 134/61
[2019-03-03] MEDS: LEVOTHYROXINE SODIUM 50 MCG TAB PO SCH (06:00)
[2019-03-03] MEDS: CARVEDILOL 12.5 MG TAB PO SCH (06:04)
--- NOTE | 2019-03-03 06:08 | NUR ---
Sandy catheter irrigated; no blood clots noted. Sandy catheter draining pale clear yellow urine.
--- NOTE | 2019-03-03 07:05 | NUR ---
bedside rounds done, received patient lying in bed with HOB up 45 degrees, AAOX4. denies pain. call light within reach and instructed to call for assistance using call light.
--- NOTE | 2019-03-03 07:15 | NUR ---
Walking rounds done. Shift report given to oncoming nurse regarding patient status.
[2019-03-03] MEDS: INSULIN LISPRO 100 UNIT/1 ML 3ML VIAL SQ SCH ×3 (07:30→17:40)
[2019-03-03 07:45] VITALS: BP 105/58
[2019-03-03] MEDS ORDERED: GLIPIZIDE 5 MG TAB PO SCH (08:00)
[2019-03-03 08:20] VITALS: BP 105/58
[2019-03-03] MEDS: SUCRALFATE 1 GM TAB PO SCH ×3 (08:24→17:40)
[2019-03-03] MEDS: ASPIRIN 81 MG CHEW TAB PO SCH (08:24)
[2019-03-03] MEDS: METFORMIN HCL 500 MG TAB PO SCH ×3 (08:24→17:40)
[2019-03-03] MEDS: PANTOPRAZOLE SOD 40 MG TABEC PO SCH (08:24)
[2019-03-03] MEDS: LISINOPRIL 2.5 MG TAB PO SCH (08:25)
[2019-03-03] MEDS: ISOSORBIDE MONONITRATE 30 MG TAB CR PO SCH (08:25)
[2019-03-03] MEDS: CLOPIDOGREL BISULFATE 75 MG TAB PO SCH (08:25)
[2019-03-03] MEDS: NIFEDIPINE CR 30 MG TAB PO SCH (08:25)
[2019-03-03] MEDS: POTASSIUM CHLORIDE 20 MEQ TAB CR PO SCH (08:25)
--- NOTE | 2019-03-03 09:18 | NUR ---
D/C Summary Principal dx: Subacute stroke Chronic strokes Acute rhabdomyolysis AJ Severe obesity BMI 35.9 with DM Physical deconditioning Secondary Dx: HLD HTN GERD Hypothyroidism DM2 PLAN lipid panel/hba1c/ASA/plavix/statin/PT consult; echo home meds lovenox/ppi dispo: medical tx 02/26/19 no events; feeling a little better; 02/27 check renal U/S; rehydrate; d/c planning; Renal U/s normal; give more fluids; check BMP in am. 02/28 likely has CKD3. 03/01 fluid overloaded last night; needed aggressive diuresis and stoppage of fluids; Now, doingbetter; give stat cxr and 20 IV lasix 03/02 deconditioned; cont PT; set up PT at home; d/c planning; 03/03 Left nephrolithiasis and B/L pleural effusions. Doing better; no hematuria; needs f/u d/c home with PT f/u pcp 1 week and 3-5 days for hematuria stable d/c>35mins Anatoly Thompson MD, PhD.
--- NOTE | 2019-03-03 09:45 | NUR ---
per , d/c rosado cath and if patient urinates clear yellow may d/c home with instructions to f/u with urology outpatient.
--- NOTE | 2019-03-03 11:42 | NUR ---
IMM letter delivered and explained to pt. He verbalized understanding. Signed copy placed in chart. Copy to pt's bedside.
[2019-03-03 11:58] VITALS: BP 116/58
--- NOTE | 2019-03-03 14:00 | NUR ---
O2 sat @ 95% on room air and PVR bladder scan resulted in 95ml, in facility notified.
[2019-03-03 16:00] VITALS: BP 118/56
[2019-03-03] MEDS: ENOXAPARIN SOD INJ 40 MG/0.4 ML SYR SC SCH ×2 (17:00→17:41)
== END 2019-03-03 17:44 | disposition home or self-care (01) | DRG 557 ==
LOC: ER 20:30 → ERHOLD 23:39 → MED/SURG2 02-25 01:15 → OBSVTOIN 02-27 17:11
PROVIDERS: ADMIT Internal Medicine; ATTEND Internal Medicine
DX: M62.82 Rhabdomyolysis (principal); I63.9 Cerebral infarction, unspecified; N17.9 Acute kidney failure, unspecified; I13.0 Hypertensive heart and chronic kidney disease with heart failure and stage 1 through stage 4 chronic kidney disease, or unspecified chronic kidney disease; E66.01 Morbid (severe) obesity due to excess calories; Z68.35 Body mass index [BMI] 35.0-35.9, adult; I50.9 Heart failure, unspecified; E11.22 Type 2 diabetes mellitus with diabetic chronic kidney disease; E03.9 Hypothyroidism, unspecified; E78.5 Hyperlipidemia, unspecified; Z95.5 Presence of coronary angioplasty implant and graft; Z82.49 Family history of ischemic heart disease and other diseases of the circulatory system; Z83.3 Family history of diabetes mellitus; K21.9 Gastro-esophageal reflux disease without esophagitis; I25.2 Old myocardial infarction; R53.81 Other malaise; N18.3 Chronic kidney disease, stage 3 (moderate)
CPT/HCPCS: 36415; 70450; 70544; 70547; 70551; 71045; 71046; 74176; 76770; 80048; 80053; 80061; 81001; 82550; 82553; 82948; 83036; 83735; 83880; 84484; 85025; 93005; 93306; 97139; 99284; G0378; J1650; J1815; J1817; J1940; J7030